=== PATIENT | female | born 1940 | race Caucasian/White ===

== ENCOUNTER 2019-04-13 15:25 | Inpatient (IN) | payer MEDICARE ==
[~2019-04-13] VITALS: Ht 167.6 cm; Wt 46.4 kg
[2019-04-13 15:28] VITALS: BP 124/73
[2019-04-13] MEDS ORDERED: SYNTHROID100 MC1 PO (15:34)
[2019-04-13] MEDS ORDERED: ALBUTEROL2.5 MG/31 INH (15:34)
[2019-04-13] MEDS ORDERED: SYMBICORT160 MCG/4. INH (15:34)
[2019-04-13] MEDS ORDERED: PROAIR HFA8.5 GM INH (15:35)
[2019-04-13 15:47] LABS: ABSOLUTE LYMPHOCYTES 0.3 thou/uL (0.8-5.3); ABSOLUTE MONOCYTES 0.9 thou/uL (0.0-1.2); ABSOLUTE NEUTROPHILS 6.6 thou/uL (1.6-8.1); BASOPHILS 0.4 %; EOSINOPHILS 0.2 %; HEMATOCRIT 43.9 % (37.0-47.0); HEMOGLOBIN 15.4 gm/dL (12.0-15.0); MCH 31.8 pg (26.0-34.0); MCHC 35.1 g/dL (28.0-37.0); MCV 90.7 fL (80.0-100.0); MONOCYTES 11.4 %; MPV 7.3 fl. (7.2-11.1); NUCLEATED RBCS 0 /100WBC; PLATELET COUNT* 108 thou/uL (150-400); RBC 4.84 mil/uL (4.20-5.00); RDW-CV 13.1 % (10.5-14.5); WBC 7.9 thou/uL (4.0-11.0)
--- NOTE | 2019-04-13 15:50 | NUR ---
PRESSURE SORES BILATERAL SHOULDERS, BONY PROMIANCE OF THE BACK, BOTTOM ECCYMOTIC ALL OVER, LEFT KNEE, RIGHT ELBOW
[2019-04-13 15:56] LABS: CALCIUM 9.4 mg/dL (8.5-10.1); CREATININE 1.1 mg/dL (0.6-1.3); POTASSIUM 3.6 mmol/L (3.5-5.1)
[2019-04-13 15:58] LABS: PROTIME 10.7 Seconds (9.20-11.50)
[2019-04-13 16:09] LABS: TOTAL BILIRUBIN 2.2 mg/dL (<0.1-1.0); TOTAL PROTEIN 7.4 g/dL (6.4-8.2)
[2019-04-13 16:10] LABS: TROPONIN-I LEVEL 0.6 ng/mL (<0.06)
[2019-04-13 17:49] LABS: URINE BILIRUBIN NEGATIVE (Negative); URINE BLOOD TRACE (Negative); URINE CLARITY CLEAR; URINE COLOR YELLOW; URINE GLUCOSE-RANDOM NEGATIVE (Negative); URINE KETONES NEGATIVE (Negative); URINE LEUKOCYTES-REFLEX NEGATIVE (Negative); URINE NITRITE-REFLEX NEGATIVE (Negative); URINE PROTEIN TRACE (Negative); URINE SPECIFIC GRAVITY 1.015 (1.005-1.030); URINE UROBILINOGEN 0.2 E.U./dl (0.2-1.0)
[2019-04-13] MEDS ORDERED: PREDNISONE 2.52.5 M1 PO (19:20)
--- NOTE | 2019-04-13 20:09 | NUR ---
REPORT GIVEN TO JAGDISH ARIZMENDI. PT BEING ADMITTED TO ROOM 214.
[2019-04-13 20:10] VITALS: BP 131/80
[2019-04-13 20:25] VITALS: BP 113/62
--- NOTE | 2019-04-13 20:25 | NUR ---
PT ADMITTED TO FLOOR PER CART ACCOMPANIED BY ER STAFF AND FAMILY WITH BELONGINGS. ORIENTED TO ROOM AND CALL LITE. HISTORY OBTAINED AND ASSESSMENT PERFORMED, SEE ADMIT NOTES. AOX4, ABLE TO ANSWER QUESTIONS APPROPRIATELY AND USE CALL LITE TO MAKE NEEDS KNOWN. PAYTON DRAINING CLEAR YELLOW URINE. LAC IVF PLACED ON PUMP FOR INFUSION. PT CO ALL OVER GENERALIZED ACHES, TYLENOL GIVEN IN ER WITH SOME RELIEF. O2 2L NC PER HOME SAT 94%. BRUISING TO ARMS, LEGS, BACK, SCATTERED OVER BODY. ABRASION TO L KNEE AND L ELBOW, PICS TAKEN, WOUNDS CLEANSED WITH WOUND CLEANSER AND MEPILEX APPLIED. CALL LITE IN EASY REACH, BED ALARM ON FOR SAFETY. WILL CONTINUE TO MONITOR AND PROVIDE CARES NEEDED.
[2019-04-14] VITALS: BP 119/63
[2019-04-14 04:00] VITALS: BP 136/67
--- NOTE | 2019-04-14 05:13 | NUR ---
NEW ADMISSION THIS SHIFT. PT SLEPT WELL OVERNIGHT AFTER SETTLING IN FROM ADMISSION. O2 2L NC. LAC IVF INFUSING PER PUMP. PAYTON DRAINING YELLOW URINE. ABRASION TO L ELBOW, LKNEE CLEANSED AND MEPILEX APPLIED. SCATTERED BRUISING TO ARMS, LEGS, BACK FROM FALLS AT HOME. AM LABS. AOX4, ABLE TO USE CALL LITE AND MAKE NEEDS KNOWN. BEDREST OVERNIGHT, PT TURNS AND REPOSITIONS SELF WITH REMINDERS. TYLENOL GIVEN FOR CO GENERALIZED ACHES WITH GOOD RESULT. BED ALARM ON FOR SAFETY.
[2019-04-14 05:18] LABS: ABSOLUTE EOSINOPHILS 0.1 thou/uL (0.0-0.7); ABSOLUTE LYMPHOCYTES 0.4 thou/uL (0.8-5.3); ABSOLUTE MONOCYTES 0.6 thou/uL (0.0-1.2); ABSOLUTE NEUTROPHILS 3.6 thou/uL (1.6-8.1); BASOPHILS 0.5 %; EOSINOPHILS 1.8 %; HEMATOCRIT 36.5 % (37.0-47.0); LYMPHOCYTES 9.4 %; MCH 31.6 pg (26.0-34.0); MCHC 34.6 g/dL (28.0-37.0); MCV 91.4 fL (80.0-100.0); MONOCYTES 12.3 %; MPV 7.7 fl. (7.2-11.1); NUCLEATED RBCS 0 /100WBC; PLATELET COUNT* 91 thou/uL (150-400); RBC 3.99 mil/uL (4.20-5.00); RDW-CV 12.7 % (10.5-14.5); WBC 4.7 thou/uL (4.0-11.0)
[2019-04-14 05:22] LABS: HEMOGLOBIN 12.6 gm/dL (12.0-15.0)
[2019-04-14 05:42] LABS: CALCIUM 8.4 mg/dL (8.5-10.1); CREATININE 0.9 mg/dL (0.6-1.3); MAGNESIUM 1.8 mg/dL (1.8-2.4); POTASSIUM 3.2 mmol/L (3.5-5.1)
[2019-04-14 08:00] VITALS: BP 149/69
[2019-04-14 12:00] VITALS: BP 145/66
[2019-04-14 16:00] VITALS: BP 145/64
--- NOTE | 2019-04-14 18:21 | NUR ---
PT RESTING IN BED THROUGHOUT SHIFT. REPOSTIONED FREQUENTLY. IVF INFUSING. REPORTS GENERALIZED BODY ACHES AND OCASSIONAL NAUSEA CONTROLLED WITH MEDS
[2019-04-14 20:05] VITALS: BP 152/59
[2019-04-15] VITALS: BP 158/65
[2019-04-15 04:00] VITALS: BP 154/73
[2019-04-15 05:15] LABS: CALCIUM 8.5 mg/dL (8.5-10.1); CREATININE 0.7 mg/dL (0.6-1.3); PHOSPHORUS* 2.4 mg/dL (2.5-4.9); POTASSIUM 4.4 mmol/L (3.5-5.1); TROPONIN-I LEVEL 0.09 ng/mL (<0.06)
--- NOTE | 2019-04-15 07:35 | NUR ---
PT SLEPT ON AND OFF THIS SHIFT. ASSESSMENT DOCUMENTED. MEDS GIVEN PER E-MAR. IV PATENT, FLUIDS INFUSING. PT UP TO BSC. PT CHOKED ON PILL THIS SHIFT. WILL CONTINUE WITH PLAN OF CARE.
[2019-04-15 07:58] VITALS: BP 162/70
[2019-04-15 12:00] VITALS: BP 150/61
--- NOTE | 2019-04-15 15:57 | NUR ---
Pt is A&O. Resides at home alone. Supportive family, nephew and his family assists as needed, Pt also has 2 sisters in the area. Independent, does not drive. Pt uses a walker for mobility. Pt wears home o2 continuously through [employer]. Pt recently moved to the area from [place]. Plan is for Pt to dc to home tomorrow with AFUA SMITH to locate a agency that offers RT that accepts her insurance. Following.
[2019-04-15 16:00] VITALS: BP 155/70
--- NOTE | 2019-04-15 16:59 | EKG ---
[place] [address] ELECTROCARDIOGRAM REPORT Name: MARILEE COOPER Room: [address] ADM IN .R.#: [id number] Admission: 04/13/19 Attend Phys: Susan Gaitca MD Discharge: Date of : 44 Report #: [id number] THIS REPORT FOR: //name// [facility] ED Test Date: 2019-04-13 Test Time: 15:37:07 Pat Name: MARILEE COOPER Department: Room: [facility] Gender: F Financial Adviser: gomez : 1940 Requested By: Jean Orozco Order Number: [id number] MD: Brayan Polanco Measurements Intervals [place] Rate: 93 P: 83 DC: 129 QRS: 69 QRSD: 74 T: 81 QT: 381 QTc: 474 Interpretive Statements Sinus rhythm Atrial premature complexes RSR' in V1 or V2, probably normal variant No previous ECG available for comparison Electronically Signed On 04-15-2019 16:59:05 CDT by Brayan Polanco [email or web address] <ELECTRONICALLY SIGNED> By: Brayan Polanco MD, [facility] 04/15/19 1659 36 Brayan Polanco MD, FACC /EPI
--- NOTE | 2019-04-15 17:57 | NUR ---
vss, assumed CARE IN THE AM, ASSESSMENT PERFOREMD AND CHARTED FALL PRECAUTIONS IN PLACE AND CALL LIGHT IN REACH, PT IS A&O4, ON 2L NC AND IS UP WITH ONE AND WALKER, DENIES ANY PAIN AT THIS TIME SHE HAS WORKED WITH PT/OT, HAS PAYTON IN PLACE AND IS DRAINING, PT IS TRACING SR ON THE MONITOR, WILL FOLLOW WITH PLAN OF CARE.
[2019-04-15 20:00] VITALS: BP 163/73
[2019-04-16] VITALS: BP 116/67; BP 140/56
[2019-04-16 04:00] VITALS: BP 145/68
--- NOTE | 2019-04-16 06:13 | NUR ---
PT SLEPT MOST OF SHIFT. ASSESSMENT DOCUMENTED. MEDS GIVEN PER E-SEP. IV PATENT, FLUIDS FINISHED INFUSING. TYLENOL GIVEN FOR PAIN. WILL CONTINUE WITH PLAN OF CARE.
[2019-04-16 06:16] LABS: CALCIUM 8.3 mg/dL (8.5-10.1); CREATININE 0.7 mg/dL (0.6-1.3); POTASSIUM 3.9 mmol/L (3.5-5.1)
[2019-04-16 10:15] VITALS: BP 145/68
[2019-04-16 11:37] VITALS: BP 152/52
--- NOTE | 2019-04-16 12:22 | NUR ---
Pt discharging to home today. Faxed referral to [email or web address] . Rep here to meet Pt. No further needs
[2019-04-16 12:23] VITALS: BP 145/68
--- NOTE | 2019-04-16 14:02 | NUR ---
VSS, ASSUMED CARE IN THE AM, ASSESSMENT PERFORMED AND CHARTED, FALL PRECAUTIONS IN PLACE AND CALL LIGHT IN REACH, PT IS TRACING SR, HER PAYTON HAS BEEN REMOVED, PT IS ON 2L NC AND IS A&O4 AND UP WITH ONE AND WALKER, PT DENIES ANY PAIN AT THIS TIME, HOME HEALTH HAS BEEN SET UP, PT IV AND TELE MOITOR HAS BEEN TAKEN OUT, PT HAS BEEN GIVEN DISCHARGE INSTRUCTIONS AND DENIES ANY QUESTIONS OR CONCERNS AT THIS TIME,
== END 2019-04-16 14:13 | disposition home health service (06) | DRG 557 ==
LOC: M.ERS 15:25 → M.2W 17:43 → M.TBA-ER 17:43 → M.2W 20:21
PROVIDERS: Family Medicine; ADMIT Family Medicine
DX: M62.82 Rhabdomyolysis (principal); E43 Unspecified severe protein-calorie malnutrition; N17.9 Acute kidney failure, unspecified; J96.11 Chronic respiratory failure with hypoxia; Z68.1 Body mass index [BMI] 19.9 or less, adult; N18.9 Chronic kidney disease, unspecified; J44.9 Chronic obstructive pulmonary disease, unspecified; E03.9 Hypothyroidism, unspecified; E87.6 Hypokalemia; R33.9 Retention of urine, unspecified; S00.93XA Contusion of unspecified part of head, initial encounter; E83.39 Other disorders of phosphorus metabolism; W19.XXXA Unspecified fall, initial encounter; Y93.89 Activity, other specified; Y92.098 Other place in other non-institutional residence as the place of occurrence of the external cause; Y99.8 Other external cause status; Z79.899 Other long term (current) drug therapy; Z88.0 Allergy status to penicillin; Z88.5 Allergy status to narcotic agent; Z88.8 Allergy status to other drugs, medicaments and biological substances; Z90.49 Acquired absence of other specified parts of digestive tract; Z90.710 Acquired absence of both cervix and uterus; Z87.891 Personal history of nicotine dependence

== ENCOUNTER 2019-05-05 15:38 | Inpatient (IN) | payer MEDICARE ==
[~2019-05-05] VITALS: Ht 167.6 cm; Wt 43.9 kg
[~2019-05-05 15:38] MED LIST: ALBUTEROL2.5 MG/31 INH; PREDNISONE 2.52.5 M1 PO; PROAIR HFA8.5 GM INH; SYMBICORT160 MCG/4. INH; SYNTHROID100 MC1 PO
[2019-05-05 15:45] VITALS: BP 207/84
[2019-05-05 16:06] LABS: ABSOLUTE EOSINOPHILS 0.1 thou/uL (0.0-0.7); ABSOLUTE LYMPHOCYTES 0.8 thou/uL (0.8-5.3); ABSOLUTE NEUTROPHILS 7.8 thou/uL (1.6-8.1); BASOPHILS 0.3 %; EOSINOPHILS 0.5 %; HEMATOCRIT 36.3 % (37.0-47.0); HEMOGLOBIN 12.8 gm/dL (12.0-15.0); MCH 31.2 pg (26.0-34.0); MCHC 35.3 g/dL (28.0-37.0); MCV 88.5 fL (80.0-100.0); MONOCYTES 10.4 %; NUCLEATED RBCS 0 /100WBC; PLATELET COUNT* 328 thou/uL (150-400); POLYS 80.8 %; RDW-CV 12.6 % (10.5-14.5); WBC 9.7 thou/uL (4.0-11.0)
[2019-05-05 16:14] LABS: ANION GAP 7 mmol/L (7-16); BUN 15 mg/dL (7-18); CALCIUM 9.3 mg/dL (8.5-10.1); CHLORIDE 94 mmol/L (98-107); CO2 34 mmol/L (21-32); CREATININE 1.1 mg/dL (0.6-1.3); GLUCOSE 118 mg/dL (70-99); POTASSIUM 3.5 mmol/L (3.5-5.1); SODIUM 135 mmol/L (136-145)
[2019-05-05 16:16] LABS: APTT 27.7 Seconds (25.0-31.3); PROTIME 10.5 Seconds (9.20-11.50)
[2019-05-05 16:19] LABS: BE 5.1 mmol/L (-2 to +3); PCO2 46.2 mmHg (35.0-45.0); PO2 74.7 mmHg (75.0-100.0); pH 7.434 (7.340-7.450)
[2019-05-05 16:25] LABS: ALBUMIN 3.2 g/dL (3.4-5.0); ALKALINE PHOSPHATASE 89 U/L (46-116); NT-PRO BRAIN NAT PEPTIDE 737 pg/mL (<300); SGOT 43 U/L (15-37); SGPT 41 U/L (30-65); TOTAL BILIRUBIN 0.8 mg/dL (<0.1-1.0); TROPONIN-I LEVEL <0.06 ng/mL (<0.06)
[2019-05-05 17:50] VITALS: BP 147/80
[2019-05-05 18:31] VITALS: BP 143/68
[2019-05-05 20:00] VITALS: BP 141/74
[2019-05-05 23:40] VITALS: BP 133/70
[2019-05-06 04:07] VITALS: BP 168/72
[2019-05-06 04:28] LABS: HEMATOCRIT 32.9 % (37.0-47.0); HEMOGLOBIN 11.4 gm/dL (12.0-15.0); MCH 30.4 pg (26.0-34.0); MCHC 34.7 g/dL (28.0-37.0); MCV 87.7 fL (80.0-100.0); MPV 7.3 fl. (7.2-11.1); RBC 3.75 mil/uL (4.20-5.00); RDW-CV 12.6 % (10.5-14.5); WBC 4.7 thou/uL (4.0-11.0)
[2019-05-06 04:33] LABS: CREATININE 0.9 mg/dL (0.6-1.3); MAGNESIUM 1.7 mg/dL (1.8-2.4); POTASSIUM 3.6 mmol/L (3.5-5.1)
[2019-05-06 08:00] VITALS: BP 178/88
[2019-05-06 11:30] VITALS: BP 153/70
[2019-05-06 16:00] VITALS: BP 162/76
--- NOTE | 2019-05-06 16:19 | EKG ---
[place] [address] ELECTROCARDIOGRAM REPORT Name: MARILEE COOPER Room: [address] ADM IN M.R.#: [id number] Admission: 05/05/19 Attend Phys: Jermaine Melendez Discharge: Date of : 44 Report #: [id number] THIS REPORT FOR: //name// [facility] ED Test Date: 2019-05-05 Test Time: 15:59:38 Pat Name: MARILEE COOPER Department: Room: [facility] Gender: F Systems Software Engineer: ANASTASIIA : 1940 Requested By: Elieser Malave Order Number: [id number] MD: Sky Beasley Measurements Intervals [place] Rate: 86 P: 87 SD: 145 QRS: 32 QRSD: 80 T: 72 QT: 382 QTc: 457 Interpretive Statements Sinus rhythm RSR' in V1 or V2, probably normal variant Baseline wander in lead(s) II,III,aVF Compared to ECG 04/13/2019 15:37:07 Atrial premature complex(es) no longer present Electronically Signed On 05-06-2019 16:19:41 CDT by Sky Beasley [email or web address] <ELECTRONICALLY SIGNED> By: Sky Beasley MD, FAC 05/06/19 1619 1559 1559 Sky Beasley MD, [facility] /EPI
--- NOTE | 2019-05-06 17:13 | 2DMMODE ---
[place] [address] 2 D/M-MODE ECHOCARDIOGRAM Name: MARILEE COOPER Room: [address] ADM IN [facility]#: [id number] Admission: 05/05/19 Attend Phys: Jermaine pandey Sa Discharge: Date of : 44 Date of Service: 05/06/19 1712 Report #: [id number] THIS REPORT FOR: //name// APPROVED REPORT Study performed: 05/06/2019 14:16:16 EXAM: Comprehensive 2D, Doppler, and color-flow Echocardiogram Patient Location: In-Patient Room #: [facility] Status: routine BSA: 1.37 HR: 80 bpm BP: 178/88 mmHg Rhythm: NSR Other Information Study Quality: Good Indications Dyspnea 2D Dimensions IVSd: 9.49 (7-11mm) LVOT Diam: 20.62 (18-24mm) LVDd: 36.72 mm PWd: 10.32 (7-11mm) Ascending Ao: 26.59 (22-36mm) LVDs: 20.25 (25-40mm) Aortic Root: 31.67 mm Volumes Left Atrial Volume (Systole) LA ESV Index: 22.80 mL/m2 Aortic Valve AoV Peak Ed.: 1.09 m/s AO Peak Gr.: 4.73 mmHg LVOT Max P.93 mmHg AO Mean Gr.: 2.41 mmHg LVOT Mean P.34 mmHg LVOT Max V: 0.86 m/s AO V2 VTI: 22.22 cm LVOT Mean V: 0.53 m/s JACQUE (VTI): 2.94 cm2 LVOT V1 VTI: 19.56 cm Mitral Valve E/A Ratio: 1.01 MV Decel. Time: 194.76 ms MV E Max Ed.: 0.72 m/[place] [address] 2 D/M-MODE ECHOCARDIOGRAM Name: MARILEE COOPER Room: [address] IN .R.#: [id number] Admission: 05/05/19 Attend Phys: Jermaine pandey Sa Discharge: Date of : 44 Date of Service: 05/06/19 1712 Report #: [id number] MV PHT: 56.48 ms MVA (PHT): 3.90 cm2 TDI E/Lateral E': 9.00 E/Medial E': 9.00 Medial E' Ed.: 0.08 m/s Lateral E' Ed.: 0.08 m/s Pulmonary Valve PV Peak Ed.: 0.89 m/s PV Peak Gr.: 3.18 mmHg Tricuspid Valve RAP Estimate: 10.00 mmHg Left Ventricle The left ventricle is normal size. There is normal LV segmental wall motion. There is normal left ventricular wall thickness. Left ventricular systolic function is normal. The left ventricular ejection fraction is within the normal range. LVEF is 60%. The left ventricular diastolic function is normal. Right Ventricle The right ventricle is normal size. The right ventricular systolic function is normal. Atria The left atrium size is normal. The right atrium size is normal. Aortic Valve The aortic valve is mildly sclerotic, possible bicuspid Trace aortic regurgitation. There is no aortic valvular stenosis. Mitral Valve The mitral valve is normal in structure. There is no mitral valve regurgitation noted. No evidence of mitral valve stenosis. Tricuspid Valve The tricuspid valve is normal in structure. Trace tricuspid regurgitation. Unable to assess PA pressure. Pulmonic Valve The pulmonary valve is normal in structure. There is no pulmonic valvular [place] [address] 2 D/M-MODE ECHOCARDIOGRAM Name: MARILEE COOPER Room: [address] IN [facility]#: [id number] Admission: 05/05/19 Attend Phys: Jermaine pandey Sa Discharge: Date of : 44 Date of Service: 05/06/19 1712 Report #: [id number] The aortic root is normal in size. IVC is normal in size and collapses >50% with inspiration. Pericardium There is no pericardial effusion. <Conclusion> The left ventricle is normal size. There is normal left ventricular wall thickness. Left ventricular systolic function is normal. The left ventricular ejection fraction is within the normal range. LVEF is 60%. The left ventricular diastolic function is normal. The right ventricle is normal size. The left atrium size is normal. The aortic valve is mildly sclerotic, possible bicuspid Trace aortic regurgitation. There is no aortic valvular stenosis. The mitral valve is normal in structure. The tricuspid valve is normal in structure. IVC is normal in size and collapses >50% with inspiration. There is no pericardial effusion. There is normal LV segmental wall motion. <ELECTRONICALLY SIGNED> By: Sky Beasley MD, FACC 05/06/191711 11 11 Sky Beasley MD, FACC /INF
[2019-05-06 20:31] VITALS: BP 179/84
[2019-05-07 00:04] VITALS: BP 147/57
[2019-05-07 04:00] VITALS: BP 171/71
[2019-05-07 05:06] LABS: HEMOGLOBIN 11.4 gm/dL (12.0-15.0); MCH 30.4 pg (26.0-34.0); MCHC 34.4 g/dL (28.0-37.0); MCV 88.3 fL (80.0-100.0); MPV 7.3 fl. (7.2-11.1); RBC 3.74 mil/uL (4.20-5.00); RDW-CV 12.6 % (10.5-14.5); WBC 8.8 thou/uL (4.0-11.0)
[2019-05-07 05:10] LABS: CALCIUM 8.9 mg/dL (8.5-10.1); CREATININE 0.8 mg/dL (0.6-1.3); POTASSIUM 3.7 mmol/L (3.5-5.1)
[2019-05-07 08:00] VITALS: BP 176/76
[2019-05-07 12:00] VITALS: BP 193/86
[2019-05-07 20:00] VITALS: BP 182/86
[2019-05-07 23:53] VITALS: BP 161/79
[2019-05-08 04:00] VITALS: BP 153/74
[2019-05-08 07:45] VITALS: BP 172/70
--- NOTE | 2019-05-08 08:41 | CON ---
[address] [address] CONSULTATION Name: MARILEE COOPER Room: [address] IN M.R.#: [id number] Admission: 05/05/19 Attend Phys: Jermaine Melendez Discharge: Date of : 44 Report #: [id number] THIS REPORT FOR: //name// CC: [facility] physician/PCP Jermaine Monet DATE OF SERVICE: 05/06/2019 PULMONARY CONSULTATION PHYSICIAN REQUESTING CONSULTATON: Glen Culver M.D. REASON FOR CONSULTATION: Acute on chronic hypoxic hypercapnic respiratory failure. HISTORY OF PRESENT ILLNESS: The patient is a 78-year-old female with past medical history significant for severe COPD, chronic hypoxic respiratory failure, who has been oxygen dependent on 2 liters for more than 10 years. She also has a history of hypothyroidism. The patient reported that she had an acute exacerbation of COPD for which she was admitted in mid-March 2019. Subsequently, she was discharged, but she never went back to her baseline. Over the last 1 week, the patient reported that she has been having progressive dyspnea along with chest tightness. She also reported history of cough that is mostly nonproductive in nature. She denies any fevers or chills. The patient is maintained on Symbicort 160/4.5 b.i.d. along with DuoNeb that she took several times before coming to the Emergency Department without significant improvement in her symptoms. No sick contacts and no upper respiratory tract like symptoms. No fevers or chills. In the Emergency Department, the patient was found to be desaturating to the 60s. She was started on BiPAP and subsequently was transferred to the telemetry floor. She is currently on 2 liters nasal cannula oxygen. She continued to have the chest tightness and significant poor respiratory reserve. She denies any lower limb edema or sick [place] [address] CONSULTATION Name: MARILEE COOPER Room: [address] IN [facility]#: [id number] Admission: 05/05/19 Attend Phys: Jermaine Melendez Discharge: Date of : 44 Report #: [id number] PAST MEDICAL HISTORY: 1. Positive for severe COPD, steroid dependent and oxygen dependent. 2. Hypothyroidism. PAST SURGICAL HISTORY: History of hysterectomy and 3 breast surgeries, cholecystectomy and appendectomy. SOCIAL HISTORY: The patient has a history of smoking 2 packs per day for 40 years. She quit smoking in 2005. She denies alcohol or illicit drug abuse. REVIEW OF SYSTEMS: Positive as described above for dyspnea on exertion, coughing and chest tightness. Remaining 10-point review of system was done and is otherwise negative except for that mentioned above. PHYSICAL EXAMINATION: The patient had the following: VITAL SIGNS: Temperature 36.4, heart rate 85, respiratory rate 22, blood pressure 168/72, saturation 92% on 2 liters nasal cannula oxygen. GENERAL: Showed an elderly female who is somewhat cachectic. She is conscious, oriented x 3 with mild tachypnea. HEENT: Showed atraumatic. NECK: Supple. Pupils are round and reactive to light and accommodation. No JVD, thyromegaly or cervical lymphadenopathy. No carotid bruit. CARDIOVASCULAR: Regular rate and rhythm, normal S1, S2, no murmur. LUNGS: Showed decreased air entry with tachypnea and end expiratory rhonchi. No crackles. ABDOMEN: Soft, lax, nontender. Normal bowel sounds. EXTREMITIES: Limbs examination showed good peripheral pulsation with no clubbing, cyanosis or edema. CENTRAL NERVOUS SYSTEM: The patient is conscious, oriented x 3 with no focal neurological deficit. Normal speech. Her investigations were as follows: CBC showed WBC count of 4.7, hemoglobin 11.4 and platelets of 290. Creatinine 0.9, sodium 134, potassium of 3.6, chloride of 96 and bicarbonate of 30. Her ABG on admission showed pH 7.43, pCO2 46.2, pO2 of 74.7, bicarbonate of 30.3 and this was on BiPAP. Chest x-ray showed no significant infiltrate, but showed evidence of hyperinflation and emphysema. ASSESSMENT AND PLAN: 1. Acute on chronic hypoxic hypercapnic respiratory failure. 2. Acute exacerbation of chronic obstructive pulmonary disease. 3. Acute bronchitis. 4. Severe chronic obstructive pulmonary disease, steroid dependence. 5. [place] [address] CONSULTATION Name: MARILEE COOPER Room: [address] IN [facility]#: [id number] Admission: 05/05/19 Attend Phys: Jermaine Melendez Discharge: Date of : 44 Report #: [id number] 6. Dyspnea. PLAN: 1. The patient appeared to have acute exacerbation of COPD with acute bronchitis with no evidence of pneumonia. 2. Agree with empiric antibiotic coverage with scheduled bronchodilators. 3. IV steroids. 4. Sent for sputum culture. 5. Titrate oxygen to keep saturation between 88 and 92%. 6. Keep BiPAP on standby. I had a lengthy discussion with the patient who expressed to me that she would like to be DNR and is interested in palliative care services that were consulted. The patient also describes a history of GERD with increased coughing during the nighttime when she lies down. I will start her on Protonix. Thank you for giving us the opportunity to participate in the management of this patient. <ELECTRONICALLY SIGNED> By: Jenn Bacon MD 05/08/19 0841 1047 1129Ammar Blossom Bacon MD /christina
[2019-05-08 11:18] VITALS: BP 160/79
[2019-05-08 12:45] VITALS: BP 184/95
[2019-05-08 16:08] VITALS: BP 147/82
[2019-05-08 20:00] VITALS: BP 180/80
[2019-05-09] VITALS: BP 156/80
[2019-05-09 04:00] VITALS: BP 180/76
[2019-05-09 07:45] VITALS: BP 157/73
[2019-05-09 11:50] VITALS: BP 141/79; BP 147/57
[2019-05-09 15:33] LABS: HEMATOCRIT 33.8 % (37.0-47.0); HEMOGLOBIN 11.9 gm/dL (12.0-15.0); MCHC 35.1 g/dL (28.0-37.0); MCV 88.3 fL (80.0-100.0); MPV 7.5 fl. (7.2-11.1); RBC 3.83 mil/uL (4.20-5.00); RDW-CV 12.6 % (10.5-14.5); WBC 9.3 thou/uL (4.0-11.0)
[2019-05-09 15:48] LABS: ALBUMIN 2.9 g/dL (3.4-5.0); CALCIUM 9.2 mg/dL (8.5-10.1); CREATININE 1.3 mg/dL (0.6-1.3); POTASSIUM 3.1 mmol/L (3.5-5.1); TOTAL BILIRUBIN 0.4 mg/dL (<0.1-1.0); TOTAL PROTEIN 6.7 g/dL (6.4-8.2)
[2019-05-09 17:04] VITALS: BP 152/67
[2019-05-09 20:00] VITALS: BP 181/83
[2019-05-10] VITALS: BP 177/89
[2019-05-10 04:00] VITALS: BP 163/85
[2019-05-10 09:12] VITALS: BP 149/63
[2019-05-10] MEDS ORDERED: AMBIEN 5 MG TABL5 M1 PO (10:39)
[2019-05-10 12:24] VITALS: BP 172/82
[2019-05-10] MEDS ORDERED: DUCODYL5 MG PO (14:22)
[2019-05-10] MEDS ORDERED: BROVANA15 MCG/2 M INH (14:26)
[2019-05-10] MEDS ORDERED: SLEEP AID50 MG PO (14:33)
[2019-05-10] MEDS ORDERED: HYDROCHLOROTHIA25 M2 PO (14:35)
[2019-05-10] MEDS ORDERED: LEVAQUIN 750 M750 MG PO (14:36)
[2019-05-10] MEDS ORDERED: MELATONIN10 M3 PO (14:36)
[2019-05-10] MEDS ORDERED: MILK OF MA2400 MG/11 PO (14:38)
[2019-05-10] MEDS ORDERED: MIRALAX119 GM PO (14:38)
[2019-05-10] MEDS ORDERED: MUCINEX600 MG PO (14:39)
[2019-05-10] MEDS ORDERED: MYLANTA MAXIMU355 ML PO (14:40)
[2019-05-10] MEDS ORDERED: PROMETHAZINE HC25 M1 PO (14:43)
[2019-05-10] MEDS ORDERED: PROTONIX40 M2 PO (14:44)
[2019-05-10] MEDS ORDERED: PULMICORT0.25 MG/2 INH (14:46)
[2019-05-10] MEDS ORDERED: TYLENOL325 MG PO (14:47)
[2019-05-10] MEDS ORDERED: ONDANSETRON HCL4 M2 PO (14:48)
[2019-05-10 14:55] VITALS: BP 172/82
== END 2019-05-10 15:30 | DRG 189 ==
LOC: M.ERS 15:38 → M.TBA-ER 17:12 → M.2W 17:12
PROVIDERS: Emergency Medicine Emergency Medical Services; Internal Medicine; ADMIT Family Medicine
PROC: 5A09357 Assistance with Respiratory Ventilation, Less than 24 Consecutive Hours, Continuous Positive Airway Pressure (ICD-10-PCS; principal; 2019-05-07)
PROC: 5A09357 Assistance with Respiratory Ventilation, Less than 24 Consecutive Hours, Continuous Positive Airway Pressure (ICD-10-PCS; 2019-05-08)
DX: J96.21 Acute and chronic respiratory failure with hypoxia (principal); J44.1 Chronic obstructive pulmonary disease with (acute) exacerbation; E46 Unspecified protein-calorie malnutrition; Z68.1 Body mass index [BMI] 19.9 or less, adult; E03.9 Hypothyroidism, unspecified; J96.22 Acute and chronic respiratory failure with hypercapnia; J20.9 Acute bronchitis, unspecified; K21.9 Gastro-esophageal reflux disease without esophagitis; Z90.710 Acquired absence of both cervix and uterus; Z90.49 Acquired absence of other specified parts of digestive tract; Z88.6 Allergy status to analgesic agent; Z88.0 Allergy status to penicillin; Z88.8 Allergy status to other drugs, medicaments and biological substances; Z87.891 Personal history of nicotine dependence; Z79.52 Long term (current) use of systemic steroids; Z99.81 Dependence on supplemental oxygen

== ENCOUNTER 2019-05-13 19:05 | Emergency (ER) | payer MEDICARE ==
[~2019-05-13] VITALS: Ht 167.6 cm
[~2019-05-13 19:05] MED LIST changes: +AMBIEN 5 MG TABL5 M1 PO; +BROVANA15 MCG/2 M INH; +DUCODYL5 MG PO; +HYDROCHLOROTHIA25 M2 PO; +LEVAQUIN 750 M750 MG PO; +MELATONIN10 M3 PO; +MILK OF MA2400 MG/11 PO; +MIRALAX119 GM PO; +MUCINEX600 MG PO; +MYLANTA MAXIMU355 ML PO; +ONDANSETRON HCL4 M2 PO; +PROMETHAZINE HC25 M1 PO; +PROTONIX40 M2 PO; +PULMICORT0.25 MG/2 INH; +SLEEP AID50 MG PO; +TYLENOL325 MG PO
[2019-05-13 19:58] LABS: HEMATOCRIT 39.6 % (37.0-47.0); HEMOGLOBIN 13.6 gm/dL (12.0-15.0); MCH 30.3 pg (26.0-34.0); MCHC 34.3 g/dL (28.0-37.0); MCV 88.1 fL (80.0-100.0); MPV 7.9 fl. (7.2-11.1); NUCLEATED RBCS 0 /100WBC; PLATELET COUNT* 213 thou/uL (150-400); RDW-CV 12.7 % (10.5-14.5); WBC 17.7 thou/uL (4.0-11.0)
[2019-05-13 20:08] LABS: CALCIUM 9.5 mg/dL (8.5-10.1); CREATININE 1.1 mg/dL (0.6-1.3); POTASSIUM 3.1 mmol/L (3.5-5.1)
[2019-05-13 20:09] LABS: PROTIME 10.6 Seconds (9.20-11.50)
[2019-05-13 20:19] LABS: TOTAL BILIRUBIN 0.8 mg/dL (<0.1-1.0); TOTAL PROTEIN 6.8 g/dL (6.4-8.2)
[2019-05-13 20:27] LABS: ABSOLUTE EOSINOPHILS 0.2 thou/uL (0.0-0.7); ABSOLUTE LYMPHOCYTES 0.7 thou/uL (0.8-5.3); ABSOLUTE MONOCYTES 0.5 thou/uL (0.0-1.2); ABSOLUTE NEUTROPHILS 16.3 thou/uL (1.6-8.1); ATYPICAL LYMPHS 2 %; PLATELET ESTIMATE ADEQUATE
[2019-05-13 21:08] LABS: URINE BILIRUBIN NEGATIVE (Negative); URINE BLOOD TRACE (Negative); URINE CLARITY CLEAR; URINE COLOR YELLOW; URINE GLUCOSE-RANDOM NEGATIVE (Negative); URINE KETONES TRACE (Negative); URINE LEUKOCYTES-REFLEX NEGATIVE (Negative); URINE NITRITE-REFLEX NEGATIVE (Negative); URINE PROTEIN NEGATIVE (Negative); URINE UROBILINOGEN 0.2 E.U./dl (0.2-1.0)
[2019-05-13 21:30] LABS: BE 5.3 mmol/L (-2 to +3); PCO2 42.7 mmHg (35.0-45.0); PO2 82.4 mmHg (75.0-100.0)
[2019-05-13 23:40] VITALS: BP 141/75
--- NOTE | 2019-05-14 13:34 | EKG ---
[place] [address] ELECTROCARDIOGRAM REPORT Name: ALLISONMARILEE [id number] Admission: 05/13/19 Attend Phys: Discharge: 05/13/19 Date of : 44 Report #: [id number] THIS REPORT FOR: //name// [facility] ED Test Date: 2019-05-13 Test Time: 19:20:16 Pat Name: MARILEE COOPER Department: Room: Gender: F Development Mgr: : 1940 Requested By: Noelle Euceda Order Number: [id number] MD: Monty Momin Measurements Intervals [place] Rate: 105 P: 89 ID: [id number] QRS: -39 QRSD: 81 T: 81 QT: 333 QTc: 441 Interpretive Statements Sinus tachycardia Atrial premature complex Biatrial enlargement RSR' in V1 or V2, probably normal variant Left ventricular hypertrophy, by voltage Compared to ECG 05/05/2019 15:59:38 Atrial premature complex(es) now present Atrial abnormality now present Left ventricular hypertrophy now present Sinus rhythm no longer present Electronically Signed On 05-14-2019 13:34:04 CDT by Monty Momin [email or web address] <ELECTRONICALLY SIGNED> By: Monty Momin MD, FACC 05/14/19 1334 19 19 Monty Momin MD, FACC /EPI
== END 2019-05-13 23:43 | disposition home or self-care (01) ==
LOC: M.ERS 19:05
PROVIDERS: Emergency Medicine
DX: J44.1 Chronic obstructive pulmonary disease with (acute) exacerbation (principal); E03.9 Hypothyroidism, unspecified; Z90.49 Acquired absence of other specified parts of digestive tract; Z90.710 Acquired absence of both cervix and uterus; Z88.6 Allergy status to analgesic agent; Z88.5 Allergy status to narcotic agent; Z88.0 Allergy status to penicillin; Z87.891 Personal history of nicotine dependence